=== PATIENT | male | born 1955 | race Caucasian/White ===

== ENCOUNTER 2020-10-06 09:01 | Emergency (ER) | payer MEDICARE ==
[~2020-10-06] VITALS: Ht 172.7 cm; Wt 81.6 kg
[2020-10-06 09:07] VITALS: BP 156/83; Ht 172.7 cm; Wt 81.6 kg
== END 2020-10-06 09:40 | disposition home or self-care (01) ==
LOC: ED 09:01
DX: T83.098A Other mechanical complication of other urinary catheter, initial encounter (principal); R31.9 Hematuria, unspecified

== ENCOUNTER 2020-10-22 23:10 | Inpatient (IN) | payer MEDICARE ==
[~2020-10-22] VITALS: Ht 175.3 cm; Wt 79.4 kg
[2020-10-22 23:19] VITALS: Ht 175.3 cm; Wt 79.4 kg
[2020-10-23 00:15] LABS: BASOPHIL % 0.7 % (0.2-1.5); CALCIUM 8.9 mg/dL (8.5-10.1); CARBON DIOXIDE 23.5 mmol/L (21-32); CHLORIDE SERUM 103 mmol/L (98-107); CREATININE SERUM 1.2 mg/dL (0.7-1.3); GFR1 > 60 mL/min; GLUCOSE SERUM 226 mg/dL (74-106); PLATELET COUNT 280 x10^3mcL (152-348); POTASSIUM SERUM 3.8 mmol/L (3.5-5.1); RED CELL DISTRIBUTION WIDTH 13.3 % (12.1-16.2); SODIUM SERUM 136 mmol/L (136-145)
[2020-10-23 00:19] LABS: rbc morphology (normal/abnorm) NORMAL (NORMAL)
[2020-10-23 00:20] LABS: ALKALINE PHOSPHATASE 124 U/L (46-116); ALT/SGPT 49 U/L (16-63); AST/SGOT 24 U/L (15-37); BILIRUBIN TOTAL 0.1 mg/dL (0.20-1.00)
[2020-10-23 00:34] LABS: ALBUMIN 3.2 g/dL (3.4-5.0)
--- NOTE | 2020-10-23 00:52 | NUR ---
PT TO ED WITH C/O URINARY RETENTION THAT BEGAN AROUND 8:30PM. UPON ARRIVAL, PT PASSED MULTIPLE BLOOD CLOTS INTO URINAL PER TRIAGE NURSE ERON. PER PT, PT HAD LEWIS CATHETHER REMOVED 1 WEEK AGO AND HAS HX OF PROSTATE AND BLADDER CANCER. PT DENIES HAVING HAD URINARY RETENTION IN THE PAST. PT NOTED WITH ABDOMINAL DISTENTION, RATING PAIN 1/10 AT THIS TIME, HOWEVER EXPRESSED THAT HIS PAIN HAS SUBSIDED AFTER PASSING ANOTHER CLOT IN THE RESTROOM. PT A&OX4,RESP EVEN AND UNLABORED, PLACED ON FULL REINFORCING BAR SETTER.
[2020-10-23 01:12] LABS: microscopic required? YES; urine erythrocyte 3+ (NEGATIVE)
--- NOTE | 2020-10-23 01:25 | NUR ---
PT STATED TO FEELING RELIEF IN ABDOMEN AND FROM ALL PAIN AT THIS TIME. PT LAYING IN POSITION OF COMFORT AND ON FULL VACUUM WORKER.
--- NOTE | 2020-10-23 02:06 | NUR ---
GAVE REPORT TO FITZ DOAN TO ASSUME CARE OF PT.
--- NOTE | 2020-10-23 02:19 | NUR ---
PT GROANING IN PAIN. NOTED URINE LEAKING FROM CATHETER. ATTEMPTED TO IRRIGATE THE CATHETER. + RESISTANCE
[2020-10-23] MEDS ORDERED: TAMSULOSIN HCL0.4 MG (03:02)
[2020-10-23] MEDS ORDERED: AZOR 10-20 MG1 EACH (03:03)
--- NOTE | 2020-10-23 03:46 | NUR ---
REPORT GIVEN TO LUCIA BYRNES
--- NOTE | 2020-10-23 04:04 | NUR ---
PT COMPLAINING OF PAIN. BLADDER IRRIGATED. +FLOW. RESIDENT PAGED FOR STRONGER PAIN MEDICATION
--- NOTE | 2020-10-23 05:00 | NUR ---
PT TRANSPORTED TO [facility]IA [facility] BY LATA BYRNES AND LYNDA EMT. PT IN NAD
[2020-10-23 05:16] LABS: CALCIUM 8.3 mg/dL (8.5-10.1); CARBON DIOXIDE 23.5 mmol/L (21-32); CHLORIDE SERUM 106 mmol/L (98-107); CREATININE SERUM 1.2 mg/dL (0.7-1.3); GFR1 > 60 mL/min; GLUCOSE SERUM 196 mg/dL (74-106); POTASSIUM SERUM 4.3 mmol/L (3.5-5.1); SODIUM SERUM 137 mmol/L (136-145)
[2020-10-23 05:25] LABS: BASOPHIL % 0.7 % (0.2-1.5); PLATELET COUNT 281 x10^3mcL (152-348); RED CELL DISTRIBUTION WIDTH 13.2 % (12.1-16.2)
[2020-10-23 05:28] LABS: rbc morphology (normal/abnorm) NORMAL (NORMAL)
[2020-10-23 06:10] VITALS: BP 151/86
--- NOTE | 2020-10-23 06:30 | NUR ---
RECEIVED PT FROM ER. PT IN IMMENSE AMOUNT OF PAIN DUE TO HEMATURIA & STASIS OF CATHETER URINE IN BLADDER. WITHDREW 550 CC OF BLOODY OUTPUT WHICH WAS INTERFERRING WITH DRAINING.PT IS A/O X4, COMPLAINTS OF PAIN TO SUPRAPUBIC AREA. ON ROOM AIR TOLERATING WELL, IV TO LAC INTACT & PATENT. WILL ENDORSE CARE TO AM RN AND INDICATED METHOD OF MANUALLY IRRIGATING CATHETER LINE.
--- NOTE | 2020-10-23 07:30 | NUR ---
RECEIVED REPORT FROM DIRECTOR OF QUANTITATIVE RESEARCH NURSE. PATIENT LAYING IN BED RESTING WITH EYES CLOSED. 20G IV TO LAC WNL AND LEWIS CATH IN PLACE. PATIENT ON RA AND MEDSURG/NO TELE. PATIENT WOKEN BRIEFLY AND DENIED PAIN AND THEN FELL BACK TO SLEEP. BED IN LOW POSITION, X2 SIDE RAILS UP AND CALL LIGHT IN REACH.
[2020-10-23 08:28] VITALS: BP 134/77
--- NOTE | 2020-10-23 10:45 | NUR ---
PATIENT TAKEN DOWN FOR TURBP PROCEDURE ORDERED BY DR. ORELLANA. CHLORAHEXADINE CLEANSING GIVEN AND LEWIS DC'D PER ORDERS. PATIENT AAOX4 AND SIGNED CONSENT TO PROCEDURE. FAMILY TO CALL THIS AFTERNOON FOR UPDATE. CONSENTS AND CHECK LIST SENT WITH SURGICAL STAFF
--- NOTE | 2020-10-23 13:55 | NUR ---
PATIENT RETURNED FROM SURGICAL UNIT S/P TURBT BY DR. ORELLANA. TUMOR BIOPSIED UNDER GENERAL ANESTHESIA WITH LMA. PATIENT ON CONTINUOUS BLADDER IRRIGATION WITH 24F LEWIS; 30ML IN BALLOON. PATIENT REPORTEDLY RECEIVED 800ML LR AND EBL WAS 30. BLOOD GLUCOSE ALSO REPORTEDLY CHECKED AT 1256 WITH A LEVEL OF 148. PATIENT VITALS CHECKED: BP: 143/79 PULSE: 56BPM RESP: 18 SPO2: 97% RA TEMP: 97.0 PATIENT DENIES PAIN AT THIS TIME AND IS MOSTLY RESTING WITH EYES CLOSED AND SNORING.
--- NOTE | 2020-10-23 15:13 | NUR ---
DR. ORELLANA PAGED TO CLARIFY IF HE STILL WOULD LIKE PATIENT TO HAVE US AT THIS TIME. PATIENT CURRENTLY RESTING WITH EYES CLOSED IN BED. HOB AT 30 DEGREES, X2 SIDE RAILS UP AND CALL LIGHT IN REACH. BLADDER IRRIGATION RUNNING AND CLEAR/LIGHT YELLOW FLUID OBSERVED IN LEWIS BAG
--- NOTE | 2020-10-23 15:17 | NUR ---
RECEIVED CALL BACK FROM DR. ORELLANA'S OFFICE AND WAS NOTIFIED THAT RENAL US IS STILL REQUESTED AT THIS TIME. CONTACTED US DEPARTMENT AND NOTIFIED TO PLEASE PERFORM RENAL US AT BEDSIDE ORDERED
--- NOTE | 2020-10-23 16:37 | NUR ---
PATIENT GLUCOSE CHECKED AND READING WAS 131. PATIENT IS AWAKE AT THIS TIME AND SPEAKING CLEARLY. AAOX4 AND ABLE TO VERBALIZE QUESTIONS AND CONCERNS. PATIENT DENIES PAIN AT THIS TIME.
[2020-10-23 16:40] VITALS: BP 135/78
--- NOTE | 2020-10-23 18:14 | NUR ---
PATIENT SITTING UP IN BED AT 90 DEGREES AND EATING DINNER. DENIES ANY PAIN OR DISCOMFORT AT THIS TIME. X2 SIDE RAILS UP, BED IN LOW POSITION, CONTINUOUS BLADDER IRRIGATION LINES PATENT AND CLEAR, YELLOW URINE OBSERVED IN LEWIS BAG. CALL LIGHT IN REACH AND PATIENT HAS DENTURES IN PLACE FOR EATING.
--- NOTE | 2020-10-23 19:10 | NUR ---
ALL QUESTIONS AND CONERNS ADDRESSED FROM PATIENT. REPORT GIVEN TO SUPERVISOR FITTING NURSE. ALL CARES ENDORSED
--- NOTE | 2020-10-23 20:00 | NUR ---
IN BED AAO*4. RESPIRATIONS UNLABORED. DENIES PAIN. LEWIS SECURED WITH CBI YELLOW DRAINAGE WITH SOME REDDISH BROWNISH SEDIMENT NOTED. LEWIS EMPTIED AT START OF SHIFT. PERSONAL ITEMS IN REACH. QUESTIONS ANSWERED. SAFETY MAINTAINED. CALL LIGHT IN REACH
[2020-10-23 20:10] VITALS: BP 116/65
--- NOTE | 2020-10-24 01:48 | NUR ---
950 BRIGHT REDDISH URINE EMPTIED NO CLOTS NOTED
[2020-10-24 05:10] VITALS: BP 125/65
--- NOTE | 2020-10-24 06:15 | NUR ---
STATES PAIN MED RELIEVED PAIN. FTG/CBI WITH BLOOD TINGED DRAINAGE. SAFETY MAINATINED. CALL AHUJA IN REACH
[2020-10-24 06:28] LABS: BASOPHIL % 0.4 % (0.2-1.5); PLATELET COUNT 250 x10^3mcL (152-348); RED CELL DISTRIBUTION WIDTH 12.9 % (12.1-16.2)
[2020-10-24 06:37] LABS: CALCIUM 8.9 mg/dL (8.5-10.1); CARBON DIOXIDE 24.5 mmol/L (21-32); CHLORIDE SERUM 104 mmol/L (98-107); GFR1 > 60 mL/min; GLUCOSE SERUM 148 mg/dL (74-106); MAGNESIUM 1.9 mg/dL (1.8-2.4); PHOSPHOROUS 3.6 mg/dL (2.5-4.9); POTASSIUM SERUM 3.9 mmol/L (3.5-5.1); SODIUM SERUM 138 mmol/L (136-145)
--- NOTE | 2020-10-24 07:25 | NUR ---
RECEIVED PT FROM NIGHT. PT IS AAOX4. PT MED-SURG STATUS. PT DENIES CHEST PAIN. PT IV TO LAC 20G. HEPLOCKED, CDI, PATENT. ALL COMFRT AND SAFETY MEASURES IN PLACE. BED IN LOW POSITION. 2 SIDE RAILS UP. CALL LIGHT WITH IN REACH. ALL QUESTIONS AND CONCERS ADDRESSED.
--- NOTE | 2020-10-24 08:04 | NUR ---
MARICHUY BOYER MADE AWARE OF PTS GIRLFRIEND ALBA REYNA'S REQUEST TO SPEAK TO HER. PLATE FITTER ALSO MADE AWARE OF WBC 10.8. ALL QUESTIONS AND CONCERNS ADDRESSED.
[2020-10-24 08:34] VITALS: BP 132/94
--- NOTE | 2020-10-24 10:15 | NUR ---
IN TO SEE PT. PT F/C DRAINING YELLOW URINE. PT DENIES PAIN AT THIS TIME.
[2020-10-24 12:01] VITALS: BP 113/67
--- NOTE | 2020-10-24 13:15 | NUR ---
IN TO SEE PT. PT REMAINS STABLE AT THIS TIME. PT F/C IRRIGATED PRN AT THIS TIME. PT HAVING MILD BLOOD TINGED URINE.
--- NOTE | 2020-10-24 17:15 | NUR ---
PT C/O PAIN WHEN URGE TO URINATE. DR ORELLANA MADE AWARE. DR ORELLANA STATED TO DO BLADDER SCAN. BLADDER SCAN SHOWED <59 ML. ALL QUESTIONS AND CONCERNS ADDRESSED.
[2020-10-24 17:18] VITALS: BP 129/68
--- NOTE | 2020-10-24 17:45 | NUR ---
PT ORAL TEMP 101.7. PRN PO TYLENOL GIVEN.
--- NOTE | 2020-10-24 18:08 | NUR ---
BRIGHT RED BLOOD NOTED TO F/C. CBI INITIATED.
--- NOTE | 2020-10-24 18:11 | NUR ---
BRIGHT RED BLOOD NOTED TO F/C. PT BLADDER IRRIGATED PRN.
--- NOTE | 2020-10-24 19:15 | NUR ---
REPORT GIVEN TO NIGHT RN. PT REMAINED STABLE THROUGHOUT MY SHIFT. ALL QUESTIONS AND CONCERNS ADDRESSED. ALL NEEDS MET AT THIS TIME.
[2020-10-24 20:14] VITALS: BP 106/61
--- NOTE | 2020-10-24 21:42 | NUR ---
PT'S CBI IS CLAMPED SINCE 1800 PER RN REPORT, URINE OUTPUT IS PINK, NO BLOOD CLOTS NOTED, DENIES ANY PAIN, LATEST TEMP IS 99.3. PATIENT IS A/O X4, ON ROOM AIR, UPDATED ON PLAN OF CARE TO WEAN CBI AND HAND IRRIGATE PRN.
--- NOTE | 2020-10-25 | NUR ---
OUTPUT FROM LEWIS IS 600ML, BLOODY, NO CLOTS NOTED, PT DENIES PAIN. RESUMED CBI AND WILL REATTEMPT TO WEAN CBI.
--- NOTE | 2020-10-25 03:56 | NUR ---
URINE OUTPUT IS LIGHT YELLOW, NO BLOOD CLOT, DENIES PAIN. CBI CLAMPED.
--- NOTE | 2020-10-25 04:32 | NUR ---
CBI DISCONNECTED, OUTPUT IS 700ML, BLOODY. NO BLOOD CLOTS NOTED. CATHETER PLUG APPLIED. OUTPUT REMAINS PINK TINGED. MANUAL IRRIGATION PRN ORDERED.
[2020-10-25 05:19] VITALS: BP 103/58
[2020-10-25 06:03] LABS: CALCIUM 8.4 mg/dL (8.5-10.1); CARBON DIOXIDE 22.2 mmol/L (21-32); CREATININE SERUM 1.3 mg/dL (0.7-1.3); POTASSIUM SERUM 3.4 mmol/L (3.5-5.1)
[2020-10-25 06:10] LABS: PLATELET COUNT 216 x10^3mcL (152-348); RED CELL DISTRIBUTION WIDTH 13.1 % (12.1-16.2)
[2020-10-25 06:28] LABS: BASOPHIL % 0 % (0.2-1.5)
--- NOTE | 2020-10-25 07:30 | NUR ---
RN AT BEDSIDE TO ASSESS PT. PT IS AWAKE, A/OX4, CALM, COOPERATIVE, LAYING SUPINE IN BED. ASSISTED PT TO SEMI-FOWLERS POSITION. LUNG SOUNDS CLEAR TO AUSCULTATION. NO EDEMA. POSITIVE PULSES ALL FOUR EXTREMITIES. POSITIVE BOWEL SOUNDS. PT STATES SOME DISCOMFORT OF THE BLADDER BUT NO SIGNIFICANT PAIN REQUIRING INTERVENTION. ASSESSED LEWIS CATHETER SITE, NO S/S INFECTION AT THE INSERTION SITE. DARK RED BLOOD NOTED IN CATHETER TUBING AND IN CATHETER BAG. WILL MANUALLY IRRIGATE LEWIS ORDERED, MD WISHED PT TO BE WEANED OFF CBI. PT VERBALIZES UNDERSTANDING. BREAKFAST TRAY SET UP FOR PATIENT. DENIES FURTHER NEEDS AT THIS TIME. CALL AHUJA IS WITHIN REACH.
[2020-10-25 07:57] VITALS: BP 120/72
--- NOTE | 2020-10-25 08:50 | NUR ---
BLADDER IRRIGATED WITH 120 ML NORMAL SALINE WITH FULL AMOUNT DRAINED INTO LEWIS BAG. URINE NOW APPEARS CLEAR, LIGHT PINK IN COLOR. WILL CONTINUE TO MONITOR. DR. ORELLANA SAYS OK TO DISCHARGE BUT IF URINE REMAINS DARK RED WILL NEED TO RESUME CBI
--- NOTE | 2020-10-25 10:26 | NUR ---
BLADDER IRRIGATED AGAIN WITH 120 ML NORMAL SALINE
--- NOTE | 2020-10-25 10:30 | NUR ---
PT AMBULATING IN HALLWAY WITH ASSISTANCE OF NUCLEAR FUEL ENRICHMENT TECHNICIAN
--- NOTE | 2020-10-25 11:30 | NUR ---
CONTINUOUS BLADDER IRRIGATION RESTARTED
--- NOTE | 2020-10-25 11:42 | NUR ---
Initial Nutrition Assessment: 242B GAB FRANCO 65M HR Dx: hematuria PMHx: Prostate CA and Bladder CA PSHx: TURBT Labs: (10/25) WBC 10.8H, H/H 11/33L, Na 135L, K 3.4L, BG 199H, POC BG 304H, Calcium 8.4L (10/23) A1C 7H, (10/22) total bilirubin 0.1L, Alk ph 124H, Alb 3.2L Meds: Glucophage, Humulin, Colace, Tylenol, Flomax, Rocephin, [place], Morphine sulfate Diet: CCHO diet PO intake since admission: (10/24) B: 60%, L: 40%, D: 100%, Ht: 175.26cm/69in Wt: 79.379kg/175lbs BMI: 25.8kg/m2 Bed scale: 162.2lbs possible scale error IBW: 72.73kg/160lbs %IBW: 109.15% UBW: 176-178lbs Age: 65 Food Allergies: NKFA per pt Edema: none noted Last BM: 10/22 Skin: skin intact Rudi: 14 Per H and p (10/23), Patient is a 65-year-old male with pmhx of Prostate CA and Bladder Ca who comes to the ED for hematuria and suprapubic pain. Patient reports that he had a few beers earlier in the day and went golfing when he had the urge to pee. However, he was unable to do so, it was painful, and he saw some blood clots coming out. The pain was initially mild, but became severe which prompted him to come to the ED. Currently the pain is 10/10 and patient is withering in pain. He also has been passing blood clots almost every hour, the duke has emptied out 1L of hematuria. Patient reports that he has prostate cancer, and he was told last June 2020 that the cancer was in his bladder. He has not had any treatment for his bladder cancer as of yet. Unable to provide a clear picture of cancer status due to patient's extreme pain. He denies any other symptoms, denies any chest pain, nausea, vomit, diarrhea, or respiratory issues. Pt was admitted with dx: Intractable suprapubic pain and gross hematuria to bladder CA and cystitis, Acute blood loss anemia, new onset DM, DVT ppx RD Note (10/25/2020) During the time of visit, pt was seen lying in bed with no signs of distress. Pt reported constipation and last BM was on Wednesday. Per medication list, Colace was given on 10/25. Per pt, he was able to tolerate his diet with fair appetite and no chewing/swallowing difficulty. Pt reported recent weight loss, but not able to specify, and pt stated that his usual body weight is 176-178lbs. At home, pt followed a regular diet and takes MVI, Turmeric, vitamin C, B12 at home. Recommended ONS for decreased PO intake, and pt was agreeable. Problem with: N/V/D/C: Constipation per pt Problems with: Chewing: Swallowing: none per pt Current appetite: fair per pt Recent wt change: none per pt %wt change: n/a Height: 5'8" Vitamin/Supplement use: MVI, Turmeric, vitamin C, vitamin B12 Special diet at home: no per pt Physical activity: no per pt Nutrition education given (specify specific nutrition education and handout given): Diabetic diet education provided to pt. Provided examples of carbohydrate containing food and explained principles of carbohydrate counting. Encouraged pt to use sample menu to plan his meal and advised pt to monitor and maintain blood glucose level between 70-120 mg/dL. Also demonstrated how to utilize nutrition label to calculate carbohydrate serving sizes. Written education "Carbohydrate Counting for People with Diabetes" and "Using Nutrition Label: Carbohydrate" from [facility] provided to pt, and pt verbalized understanding without further questions or concerns. Food-drug interactions? Education given? n/a Estimated Nutritional Needs Based on ideal body weight (72kg) Energy: 3795-1384 kcal/day (25-30 kcal/kg for maintenance) Protein: 72-86 g/day (1-1.2 g/kg for maintenance and LBM preservation) Fluid: 4959-9193 mL/day (1 mL/kcal) Nutrition Diagnosis: 1. Impaired nutrition utilization r/t endocrine dysfunction a/e/b pt elevated BG 199H on 10/25 and A1C 7H on 10/23. 2. Inadequate energy and protein intake r/t suboptimal PO intake a/e/b pt average PO intake of 66.67% since admission. Intervention 1. Continue with CCHO 60 as tolerate 2. Recommend Glucerna BID for additional 440kcal and 20g protein. Monitor/Evaluate Goal: PO intake at least 75% of estimated needs Monitor: PO intake, Labs, GI function, ONS intake, and Body weight F/U in 3-5 days as moderate risk 10/28-
--- NOTE | 2020-10-25 11:43 | NUR ---
1. Continue with CCHO 60 as tolerate 2. Recommend Glucerna BID for additional 440kcal and 20g protein.
[2020-10-25 11:48] VITALS: BP 134/75
[2020-10-25 17:13] VITALS: BP 121/69
--- NOTE | 2020-10-25 17:38 | NUR ---
RN AT BEDSIDE ASSESSING PT. PT IS IN HIGH FOWLERS EATING DINNER, ON ROOM AIR, CLEAR BREATH SOUNDS, POSTIIVE BOWEL SOUNDS, BMX2 TODAY, DENIES PAIN AT THIS TIME, CONTINUOUS BLADDER IRRIGATION RUNNING AT LOW RATE, DRAINAGE IS VERY LIGHT AND PINK TINGED, NO EVIDENCE OF CLOTS, ALL NEEDS ADDRESSED DURING VISIT, NO S/S DISTRESS, BED IS IN LOWEST LOCKED POSITION, CALL AHUJA IS WITHIN REACH. WILL ATTEMPT TO WEAN BLADDER IRRIGATION APPROPRIATELY
--- NOTE | 2020-10-25 19:08 | NUR ---
URINE IN DRAINAGE BAG NOTED TO BE BLOODY, CBI RESTARTED
--- NOTE | 2020-10-25 19:31 | NUR ---
RECEIVED PT FROM DAY SHIFT NURSE. PT IS A/OX4, ABLE TO MAKE NEEDS KNOWN. PT IS MED SURG. PULSES PALPABLE, NO EDEMA NOTED. LUNG SOUNDS CTA. O2 SAT OF 96% ON RA. RR EVEN AND UNLABORED. NO C/O CHEST PAIN, MARROQUIN OR SOB. PT HAS A LEWIS IN PLACE W/ CBI. PT IS AMBULATORY. SKIN IS WDI. PT HAS LAC CURRENTLY ON SALINE LOCK. PT APPEARS CALM AND IS COOPERATIVE. CALL LIGHT W/IN REACH. BED LOCKED AND IN LOWEST POSITION. INFORMED PT TO USE CALL LIGHT NEEDED.
--- NOTE | 2020-10-25 19:38 | NUR ---
RECEIVED PT FROM DAY SHIFT NURSE. PT IS A/OX4, ABLE TO MAKE NEEDS KNOWN. PT IS ON TELE #10, READING SR. PULSES ARE WEAK. EDEMA NOTED ON R GREAT TOE. TRACE EDEMA NOTED ON BLE. LUNG SOUNDS CTA. O2 SAT OF 96% ON RA. RR EVEN AND UNLABORED. NO C/O CHEST PAIN, MARROQUIN OR SOB. PT VOIDS FREELY. WEAKNESS NOTED ON RLE. PT IS AMBULATORY W/ A CANE. DIABETIC ULCER ON R GREAT TOE NOTED. BLISTER ON R LATERAL FOOT NOTED. PT HAS RAC AND LFA IV, CURRENTLY ON SALINE LOCK. CALL LIGHT W/IN REACH. BED LOCKED AND IN LOWEST POSITION. INFORMED PT TO USE CALL LIGHT NEEDED.
[2020-10-25 20:15] VITALS: BP 138/69
--- NOTE | 2020-10-26 00:15 | NUR ---
PT IS RESTING IN BED W/ EYES CLOSED AT THIS TIME. RR EVEN AND UNLABORED. NO C/O CHES PAIN, MARROQUIN OR SOB. CALL LIGHT W/IN REACH. BED LOCKED AND IN LOWEST POSITION.
[2020-10-26 05:37] VITALS: BP 114/71
[2020-10-26 05:58] LABS: BASOPHIL % 0.4 % (0.2-1.5); PLATELET COUNT 215 x10^3mcL (152-348); RED CELL DISTRIBUTION WIDTH 12.9 % (12.1-16.2)
[2020-10-26 06:08] LABS: CALCIUM 9.1 mg/dL (8.5-10.1); CARBON DIOXIDE 22.7 mmol/L (21-32); CHLORIDE SERUM 103 mmol/L (98-107); GFR1 > 60 mL/min; GLUCOSE SERUM 134 mg/dL (74-106); POTASSIUM SERUM 3.8 mmol/L (3.5-5.1); SODIUM SERUM 136 mmol/L (136-145)
[2020-10-26 06:13] LABS: rbc morphology (normal/abnorm) NORMAL (NORMAL)
--- NOTE | 2020-10-26 07:01 | NUR ---
PT IS RESTING IN BED AT THIS TIME. RR EVEN AND UNLABORED. NO C/O CHEST PAIN, MARROQUIN OR SOB. O2 SAT OF 95% ON RA. CALL LIGHT W/IN REACH. BED LOCKED AND IN LOWEST POSITION. INFORMED PT TO USE CALL LIGHT NEEDED. PT NEEDS WERE MET THROUGH OUT SHIFT. WILL ENDORES CARE TO ONCOMING SHIFT NURSE.
--- NOTE | 2020-10-26 07:45 | NUR ---
PT IS A/O X4. PT HAS (+) RADIAL/PEDAL PULSES, NO EDEMA. PT HAS BILAT CLEAR LUNG SOUND O2SAT 96% @ RA. (+) BOWEL SOUND, LAST BM 10/26/20. PT DENIES ANY PAIN. PT HAS S/L LAC 20G FLUSHED AND PATENT. PT IS CALM AND COOPERATIVE. PT OUTPUT FROM CBI IS 2700 ML OF SANGUINEOUS FLUID. SKIN IS INTACT. PT HAS GEN WEAKNESS PT IS AMBULATORY. CALL LIGHT WITHIN REACH, BED LOCKED AND AT LOWEST POSITION.
[2020-10-26 08:14] VITALS: BP 136/72
[2020-10-26 12:11] VITALS: BP 131/76
[2020-10-26] MEDS ORDERED: CIPRO500 MG PO (12:35)
[2020-10-26] MEDS ORDERED: GLU500 PO (12:35)
[2020-10-26] MEDS ORDERED: EASY COMFORT ALCO70% TOP (12:58)
[2020-10-26] MEDS ORDERED: BLOOD LANCETS1 EACH TOP (12:58)
[2020-10-26] MEDS ORDERED: TEST STRIPS1 EACH MC (12:59)
[2020-10-26] MEDS ORDERED: BLOOD GLUCOSE1 EAC3 MC (12:59)
[2020-10-26 13:07] VITALS: BP 131/76
== END 2020-10-26 13:45 | disposition home or self-care (01) | DRG 669 ==
LOC: ED 23:10 → MU 10-23 02:29
PROVIDERS: Emergency Medicine; Urology; ADMIT Internal Medicine; ATTEND Internal Medicine
PROC: 0TBB8ZZ Excision of Bladder, Via Natural or Artificial Opening Endoscopic (ICD-10-PCS; 2020-10-23)
PROC: 0T5B8ZZ Destruction of Bladder, Via Natural or Artificial Opening Endoscopic (ICD-10-PCS; 2020-10-23)
PROC: 0TCC8ZZ Extirpation of Matter from Bladder Neck, Via Natural or Artificial Opening Endoscopic (ICD-10-PCS; principal; 2020-10-23 12:00)
DX: C67.9 Malignant neoplasm of bladder, unspecified (principal); D62 Acute posthemorrhagic anemia; Z20.822 Contact with and (suspected) exposure to COVID-19; I10 Essential (primary) hypertension; N30.90 Cystitis, unspecified without hematuria; E11.9 Type 2 diabetes mellitus without complications; Z85.46 Personal history of malignant neoplasm of prostate; Z79.899 Other long term (current) drug therapy; Z79.891 Long term (current) use of opiate analgesic; Z79.01 Long term (current) use of anticoagulants
CPT/HCPCS: 82962; G0378; J0330; J0696; J2270; J2405; J2704; J2710; J3010; J3490; J7030; J7060; J7120